=== PATIENT | female | born 1980 | race Caucasian/White ===

== ENCOUNTER 2023-03-30 23:46 | Emergency (ER) | payer BC, SELFPAY ==
[2023-03-31] VITALS (7 sets, daily range): BP systolic 115–127; BP diastolic 74–87; PULSE 85–90; RESP 18; TEMP 36.7–36.9; O2SAT 98–99; BMI 28.3
--- NOTE | 2023-03-31 00:21 | ED_ITS ---
HPI - General Adult General Time Seen by Provider: 00:21 Date Seen: 03/31/23 Chief complaint: Fever Stated complaint: Feeling ill-headache,shivers, Time Seen by Provider: 03/31/23 00:20 Source: patient Mode of arrival: ambulatory Limitations: no limitations History of Present Illness HPI narrative: 43-year-old female who comes in today with headache and neck pain. Patient notes abrupt onset left posterior neck pain with left-sided headache and nausea. no vomiting. No abdominal pain. Denies cough, runny nose, sore throat although did have a sore throat last week. No fever but does note chills. denies flank pain or urinary symptoms. Denies visual changes, numbness or tingling in the arms or legs, weakness. Related Data Home Medications Medication Instructions Recorded Confirmed No Known Home Medications 03/31/23 03/31/23 Allergies Allergy/AdvReac Type Severity Reaction Status Date / Time No Known Drug Allergies Allergy Verified 03/31/23 00:16 Exam Narrative: Exam Narrative: General: Well-developed and well-nourished, no acute distress Head: Atraumatic and normocephalic Eyes: Pupils are equal reactive, extraocular motions intact, conjunctiva clear ENT: External nose and ears are normal, posterior pharynx without erythema or exudate Neck: No midline cervical tenderness, full spontaneous range of motion the neck, trachea midline, no adenopathy , left cervical paraspinous tenderness with no meningismus Heart: Regular rate and rhythm no murmurs or thrills Lungs: Clear to auscultation bilaterally without wheezes or crackles Abdomen: Soft, nontender, nondistended with active bowel sounds Musculoskeletal: No tenderness, deformity, or edema Neurologic: Awake, alert, and oriented x3, no gross focal neurologic deficits, cranial nerves intact as tested Psych: Mood and affect are appropriate Skin: No rashes Const: Vital Signs, click to edit/add: Vital Signs - 24 hr 03/31/23 00:14 03/31/23 00:46 03/31/23 01:49 Temperature 98.1 F 98.1 F 98.1 F Pulse Rate [Pulse Oximeter] 90 Respiratory Rate 18 Blood Pressure [Ri ght Upper Arm] 127/87 Pulse Oximetry 98 Oxygen Delivery Me thod Room Air Course Course ED Course: Patient seen and examined, prior records reviewed. patient presents today with abrupt onset left-sided headache and left-sided neck pain along with some nausea. Initially triaged as some possible COVID but has no runny nose, cough, fever. Symptoms seem more consistent with acute headache syndrome, given abrupt onset neck pain concern for possible vertebral dissection as well. Labs and CTA are ordered along with Toradol and Zofran. Reevaluation(s) Time of Reevaluation #1: 01:59 Reevaluation #1: CT scan of the head independently interpreted by me negative for acute findings, CTA pending. Vital Signs Vital signs: Initial Vital Signs Temperature 98.1 F 03/31/23 00:14 Temperature Source Temporal Artery Scan 03/31/23 00:14 Pulse Rate 90 03/31/23 00:14 Respiratory Rate 18 03/31/23 00:14 Blood Pressure 127/87 03/31/23 00:14 Blood Pressure Mean 100 03/31/23 00:14 Blood Pressure Position Sitting 03/31/23 00:14 Pulse Oximetry 98 03/31/23 00:14 Oxygen Delivery Method Room Air 03/31/23 00:14 Vital Signs Temperature 98.1 F 03/31/23 00:14 Pulse Rate 90 03/31/23 00:14 Respiratory Rate 18 03/31/23 00:14 Blood Pressure 127/87 03/31/23 00:14 Pulse Oximetry 98 03/31/23 00:14 Oxygen Delivery Method Room Air 03/31/23 00:14 Temperature 98.1 F 03/31/23 01:49 Pulse Rate 90 03/31/23 00:14 Respiratory Rate 18 03/31/23 00:14 Blood Pressure 127/87 03/31/23 00:14 Pulse Oximetry 98 03/31/23 00:14 Oxygen Delivery Method Room Air 03/31/23 00:14 Medications Administered Medications: Generic Name Dose Route Start Last Admin Trade Name Freq PRN Reason Stop Dose Admin Ketorolac Tromethamine 15 mg 03/31/23 00:33 03/31/23 00:46 Ketorolac 15 Mg/Ml Inj IVP 03/31/23 00:34 15 mg ONCE ONE Administration Ondansetron HCl 4 mg 03/31/23 00:33 03/31/23 00:44 Ondansetron 2 Mg/Ml Inj IVP 03/31/23 00:34 4 mg ONCE ONE Administration Medical Decision Making Lab Data Labs: Lab Results 03/31/23 03/31/23 Range/Units 00:18 01:25 SARS-CoV-2 (PCR) Negative SARS-CoV-2 (Negative) Influenza Type A (PCR) Negative PCR FLU A (Negative) Influenza Type B (PCR) Negative PCR FLU B (Negative) RSV (PCR) Negative PCR RSV (Negative) POC Creatinine 0.5 L (0.6-1.3) mg/dl Discharge Plan Discharge Clinical Impression: Acute headache Patient Disposition: Home, Self-Care Condition: Stable Instructions: Tension Headache (ED), Acute Headache (ED) Additional Instructions: Tylenol or ibuprofen as needed for headache Activity Level: Activity as Tolerated Discharge Diet: Regular Prescriptions: No Action No Known Home Medications Follow Up/Referrals: Provider,Not a Local [Primary Care Provider] - Stand Alone Forms: [facility] Info Instructions
--- NOTE | 2023-03-31 00:31 | CRLHL7_ITS ---
For Patients: As a result of the Century Cures Act, medical imaging exams and procedure reports are released immediately into your electronic medical record. You may view this report before your referring provider. If you have questions, please contact your health care provider. INDICATION: Sudden left-sided headache, left posterior neck pain. TECHNIQUE: CTA head with contrast bolus tracking, 3D angiographic rendering using maximum intensity projection (MIP) and images permanently archived. FINDINGS: There is normal opacification of the intracranial vasculature. There is no large vessel occlusion. No aneurysm is identified. IMPRESSION: Unremarkable head CTA. Please note that all CT scans at this facility use dose modulation, iterative reconstruction, and/or weight-based dosing when appropriate to reduce radiation dose to as low as reasonably achievable. Dictated by Rambo Velazquez MD @ 03/31/2023 7:42:17 AM (Electronically Signed)
--- NOTE | 2023-03-31 00:31 | CRLHL7_ITS ---
For Patients: As a result of the Century Cures Act, medical imaging exams and procedure reports are released immediately into your electronic medical record. You may view this report before your referring provider. If you have questions, please contact your health care provider. INDICATION: Sudden left-sided headache, left posterior neck pain. TECHNIQUE: CTA neck with contrast bolus tracking, 3D angiographic rendering using maximum intensity projection (MIP) and images permanently archived. FINDINGS: There is no significant carotid artery stenosis or dissection. There is no significant vertebral artery stenosis or dissection. The soft tissues of the neck are within normal limits. The cervical spine is in normal alignment. IMPRESSION: Unremarkable neck CTA. Please note that all CT scans at this facility use dose modulation, iterative reconstruction, and/or weight-based dosing when appropriate to reduce radiation dose to as low as reasonably achievable. Dictated by Rambo Velazquez MD @ 03/31/2023 7:43:34 AM (Electronically Signed)
[2023-03-31] MEDS: ONDANSETRON 2 MG/ML inj 4 MG IVP (00:44)
[2023-03-31] MEDS: KETOROLAC 15 MG/ML inj IVP (00:46)
[2023-03-31 01:01] LABS: PCR FLU A Negative PCR FLU A (Negative); PCR FLU B Negative PCR FLU B (Negative); PCR RSV Negative PCR RSV (Negative)
[2023-03-31 01:02] LABS: SARS PCR* Negative SARS-CoV-2 (Negative)
--- NOTE | 2023-03-31 01:11 | CRLHL7_ITS ---
For Patients: As a result of the Century Cures Act, medical imaging exams and procedure reports are released immediately into your electronic medical record. You may view this report before your referring provider. If you have questions, please contact your health care provider. INDICATION: Abrupt onset LT sided head and LT posterior neck pain. TECHNIQUE: CT head without contrast. Permanently recorded images are archived. COMPARISON: None. FINDINGS: CSF spaces: Within normal limits for age. Brain parenchyma and extra-axial spaces: The jerome-white differentiation is normal. No sign of mass, hemorrhage, or midline shift. No extra-axial fluid collection. Skull base and calvarium: The visualized paranasal sinuses demonstrate no acute or significant findings. The mastoid air cells are clear. The visualized orbits are grossly unremarkable. No skull fractures. IMPRESSION: No evidence of an acute intracranial abnormality. Please note that all CT scans at this facility use dose modulation, iterative reconstruction, and/or weight-based dosing when appropriate to reduce radiation dose to as low as reasonably achievable. Dictated by Daniel Rainey MD @ 03/31/2023 1:59:27 AM (Electronically Signed)
[2023-03-31 01:46] LABS: Creatinine, Point-of-Care* 0.5 mg/dl (0.6-1.3)
[2023-03-31] MEDS: dexAMETHasone 10 MG/ML inj PO (02:14)
== END 2023-03-31 02:15 | disposition home or self-care (01) ==
PROVIDERS: Emergency Provider Family Medicine
DX: R51.9 Headache, unspecified (principal)
CPT/HCPCS: 70450; 70496; 70498; 82565; 87631; 94761; 96374; 96375; 99284; J1100; J1885; J2405; Q9967